=== PATIENT | male | born 1955 | race Caucasian/White ===

== ENCOUNTER 2019-12-16 13:17 | Emergency (ER) | payer SELFPAY ==
[~2019-12-16] VITALS: Ht 165.1 cm; Wt 72.6 kg
--- NOTE | 2019-12-16 13:17 | NUR ---
Patient BIBA BLS, transferred to bed 11. RN evaluating patient at bedside.
[2019-12-16 13:18] VITALS: BP 105/55
--- NOTE | 2019-12-16 13:28 | NUR ---
A HOMELESS PT BIBA FROM [facility] C/O RASH ON LOWER ABDOMEN AND ALIA ARMS WITH ITCHY AND BURNING SENSATIONS. REPORT SUBJECTIVE FEVER ONE WEEKA AGO, AFEBRILE UPON TRIAGE WITH ORAL T 98.5. DENIES COUGH, N/V/D, CP, SOB, OR BODY ACHES. SKIN IS PINK/WARM/DRY WITH SEVERE SMALL ERYTHEMATOUS ABRASIONS ON ALIA FOREARMS AND LOWER ABDOMEN; AAOX4. LUNGS CLEAR BL; HR EVEN AND REGULAR; PT DENIES ANY FEVER, CP, SOB, OR COUGH AT THIS TIME; PATIENT STATES PAIN OF 0/10 AT THIS TIME; VSS; PATIENT POSITIONED FOR COMFORT; HOB ELEVATED; BEDRAILS UP X2; BED DOWN. ER MD MADE AWARE OF PT STATUS.
--- NOTE | 2019-12-16 13:32 | NUR ---
Dr. Sánchez is evaluating the patient at bedside.
[2019-12-16] MEDS ORDERED: ALBUTEROL SULFATE/IPRATROPIU 3 ML SOL IH ONE (13:40)
--- NOTE | 2019-12-16 13:42 | NUR ---
PT'S LAB WORKS HAVE BEEN CANCELED BY DR. SMITH.
--- NOTE | 2019-12-16 13:43 | NUR ---
URINE DRUG SCREEN CANCELED BY DR. SMITH.
--- NOTE | 2019-12-16 13:57 | NUR ---
RT IS AT BEDSIDE.
[2019-12-16 14:25] VITALS: BP 110/55
--- NOTE | 2019-12-16 14:25 | NUR ---
Patient discharged with v/s stable. Written and verbal after care instructions given and explained. Patient alert, oriented and verbalized understanding of instructions. Ambulatory with steady gait. All questions addressed prior to discharge. ID band removed. Patient advised to follow up with PMD. Rx of Neosporin, Lotrimin, and Albuterol given. Patient educated on indication of medication including possible reaction and side effects. Opportunity to ask questions provided and answered. Addendum: 12/16/19 at 1426 by [facility] LUNCH TRAY PROVIDED TO PT AND PT WANTS TO EAT IN THE LOBBY.
== END 2019-12-16 14:25 | disposition home or self-care (01) ==
LOC: MED 13:17
DX: B35.4 Tinea corporis (principal); R06.02 Shortness of breath; Z59.0 Homelessness
CPT/HCPCS: 93005; 94640; 99283